=== PATIENT | male | born 1975 | race Caucasian/White ===

== ENCOUNTER 2019-10-23 11:10 | Inpatient (IN) | payer OTHER ==
[~2019-10-23] VITALS: Ht 172.7 cm; Wt 96.2 kg
[2019-10-23 12:30] VITALS: BP 157/93
[2019-10-23 13:05] LABS: BASO % 1.9 % (0.0-1.0); HEMATOCRIT 41.7 % (42.0-52.0); LYMPH # 0.6 10*3/uL (1.3-4.4); LYMPH % 28.6 % (27.0-41.0); MEAN CELL VOLUME 100.5 fl (80.0-94.0); MEAN CORPUSCULAR HGB CONC 33.8 g/dl (33.0-37.0); MEAN PLATELET VOLUME 9.6 fl (9.6-12.3); MONO # 0.3 10*3/uL (0.1-1.0); NEUT # 1.1 10*3/uL (2.3-7.9); NEUT % 52.5 % (47.0-73.0); PLATELET COUNT AUTOMATED 89 10*3/uL (130-400); RED BLOOD COUNT 4.15 10*6/uL (4.50-5.90); RED CELL DISTRI WIDTH 12.4 % (0-14.5); WHITE BLOOD COUNT 2.1 10*3/uL (4.8-10.8)
[2019-10-23 13:18] LABS: ALBUMIN 3.6 gm/dl (3.1-4.5); ALKALINE PHOSPHATASE 110 U/L (45-117); BUN 5 mg/dl (7-24); CHLORIDE 99 mmol/L (98-107); CREATININE 0.65 mg/dL (0.70-1.30); POTASSIUM 3.5 mmol/L (3.5-5.1); SGOT/AST 464 IU/L (3-35); SGPT/ALT 314 U/L (12-78); SODIUM 134 mmol/L (136-145); TOTAL PROTEIN 7.9 gm/dL (6.4-8.2)
[2019-10-23 16:00] VITALS: BP 149/97
[2019-10-23 18:36] LABS: URINE AMPHETAMINES < 1000 (1000ng/ml); URINE BARBITURATES < 200 (200ng/ml); URINE BENZODIAZEPINES < 200 (200ng/ml); URINE CANNABINOIDS (THC) < 50 (50ng/ml); URINE COCAINE < 300 (300ng/ml); URINE METHADONE < 300 (300ng/ml); URINE OPIATES < 300 (300ng/ml); URINE PHENCYCLIDINE < 25 (25ng/ml)
[2019-10-23 18:41] LABS: CLARITY SL CLOUDY (CLEAR); COLOR YELLOW (YELLOW)
[2019-10-23 18:42] LABS: BACTERIA TRACE; BILIRUBIN NEGATIVE (NEGATIVE); BLOOD NEGATIVE (NEGATIVE); GLUCOSE NEGATIVE (NEGATIVE); KETONE NEGATIVE (NEGATIVE); LEUKO ESTERASE NEGATIVE (NEGATIVE); NITRITE NEGATIVE (NEGATIVE)
[2019-10-23 19:59] VITALS: BP 150/98
[2019-10-23 20:00] VITALS: BP 152/111
[2019-10-23 21:33] VITALS: BP 152/98
[2019-10-24] VITALS: BP 139/78
[2019-10-24 05:42] LABS: ALBUMIN 3.2 gm/dl (3.1-4.5); BILIRUBIN, DIRECT 1.7 mg/dL (0.0-0.2)
[2019-10-24 08:00] VITALS: BP 130/92
[2019-10-24 12:00] VITALS: BP 138/86
[2019-10-24 16:00] VITALS: BP 137/96
[2019-10-24 20:00] VITALS: BP 130/94; BP 135/99
[2019-10-25] VITALS: BP 124/86
[2019-10-25 06:10] LABS: HEP B CORE AB, IGM Negative (Negative); HEPATITIS B SURFACE AG Negative (Negative); HEPATITIS C VIRUS ANTIBODY 0.2 s/co (0.0-0.9)
[2019-10-25 06:22] LABS: BASO # 0.1 10*3/uL (0.0-0.1); BASO % 1.7 % (0.0-1.0); EOS # 0.1 10*3/uL (0.0-0.4); EOS % 1.7 % (1.0-4.0); HEMATOCRIT 41.5 % (42.0-52.0); LYMPH # 1.2 10*3/uL (1.3-4.4); LYMPH % 39.1 % (27.0-41.0); MEAN CELL VOLUME 99.3 fl (80.0-94.0); MEAN CORPUSCULAR HGB 33.3 pg (27.0-31.0); MEAN CORPUSCULAR HGB CONC 33.5 g/dl (33.0-37.0); MONO # 0.4 10*3/uL (0.1-1.0); MONO % 13.6 % (3.0-9.0); NEUT # 1.3 10*3/uL (2.3-7.9); NEUT % 43.6 % (47.0-73.0); PLATELET COUNT AUTOMATED 85 10*3/uL (130-400); RED BLOOD COUNT 4.18 10*6/uL (4.50-5.90); RED CELL DISTRI WIDTH 12.5 % (0-14.5); WHITE BLOOD COUNT 2.9 10*3/uL (4.8-10.8)
[2019-10-25 06:51] LABS: ALBUMIN 3.2 gm/dl (3.1-4.5); ALKALINE PHOSPHATASE 134 U/L (45-117); BUN 9 mg/dl (7-24); CHLORIDE 103 mmol/L (98-107); CREATININE 0.73 mg/dL (0.70-1.30); POTASSIUM 3.6 mmol/L (3.5-5.1); SGOT/AST 383 IU/L (3-35); SGPT/ALT 293 U/L (12-78); SODIUM 133 mmol/L (136-145); TOTAL PROTEIN 7.3 gm/dL (6.4-8.2)
[2019-10-25 08:00] VITALS: BP 138/84
[2019-10-25 12:00] VITALS: BP 131/90
[2019-10-25 16:00] VITALS: BP 125/84
[2019-10-25 20:00] VITALS: BP 144/106
[2019-10-25 22:30] VITALS: BP 109/67
[2019-10-26] VITALS (12 sets, daily range): BP systolic 95–127; BP diastolic 66–93
[2019-10-26 00:03] LABS: ARTERIAL BLOOD GAS PH 7.371 (7.35-7.45)
[2019-10-26 05:33] LABS: ALBUMIN 3.4 gm/dl (3.1-4.5); ALKALINE PHOSPHATASE 134 U/L (45-117); CHLORIDE 106 mmol/L (98-107); CREATININE 0.88 mg/dL (0.70-1.30); POTASSIUM 3.8 mmol/L (3.5-5.1); SGOT/AST 275 IU/L (3-35); SGPT/ALT 270 U/L (12-78); SODIUM 135 mmol/L (136-145); TOTAL PROTEIN 7.9 gm/dL (6.4-8.2)
[2019-10-26 05:37] LABS: BUN 19 mg/dl (7-24)
[2019-10-26 05:49] LABS: ABG BASE EXCESS -3.9 mmol/L (-2.0-2.0); ARTERIAL BLOOD GAS PH 7.39 (7.35-7.45)
[2019-10-26 06:13] LABS: BASO # 0.1 10*3/uL (0.0-0.1); BASO % 1.3 % (0.0-1.0); EOS % 0.6 % (1.0-4.0); HEMATOCRIT 43.4 % (42.0-52.0); LYMPH # 0.9 10*3/uL (1.3-4.4); LYMPH % 16.7 % (27.0-41.0); MEAN CORPUSCULAR HGB CONC 32.9 g/dl (33.0-37.0); MEAN PLATELET VOLUME 11.4 fl (9.6-12.3); MONO # 0.8 10*3/uL (0.1-1.0); MONO % 15.2 % (3.0-9.0); NEUT # 3.6 10*3/uL (2.3-7.9); NEUT % 65.8 % (47.0-73.0); RED BLOOD COUNT 4.21 10*6/uL (4.50-5.90); RED CELL DISTRI WIDTH 13.1 % (0-14.5); WHITE BLOOD COUNT 5.4 10*3/uL (4.8-10.8)
[2019-10-26 06:32] LABS: MEAN CELL VOLUME 103.1 fl (80.0-94.0); PLATELET COUNT AUTOMATED 119 10*3/uL (130-400)
[2019-10-26 08:47] LABS: ABG BASE EXCESS -3.6 mmol/L (-2.0-2.0); ARTERIAL BLOOD GAS PH 7.444 (7.35-7.45)
[2019-10-27] VITALS (12 sets, daily range): BP systolic 113–155; BP diastolic 65–90
[2019-10-27 06:12] LABS: BASO # 0.1 10*3/uL (0.0-0.1); BASO % 0.7 % (0.0-1.0); EOS % 0.3 % (1.0-4.0); HEMATOCRIT 43.7 % (42.0-52.0); MEAN CELL VOLUME 103.8 fl (80.0-94.0); MEAN CORPUSCULAR HGB 33.5 pg (27.0-31.0); MEAN CORPUSCULAR HGB CONC 32.3 g/dl (33.0-37.0); MEAN PLATELET VOLUME 11.3 fl (9.6-12.3); MONO # 1.1 10*3/uL (0.1-1.0); MONO % 15.9 % (3.0-9.0); NEUT # 4.7 10*3/uL (2.3-7.9); NEUT % 68.5 % (47.0-73.0); PLATELET COUNT AUTOMATED 98 10*3/uL (130-400); RED BLOOD COUNT 4.21 10*6/uL (4.50-5.90); WHITE BLOOD COUNT 6.8 10*3/uL (4.8-10.8)
[2019-10-27 06:29] LABS: ALBUMIN 2.9 gm/dl (3.1-4.5); ALKALINE PHOSPHATASE 110 U/L (45-117); BUN 18 mg/dl (7-24); CHLORIDE 110 mmol/L (98-107); CREATININE 0.84 mg/dL (0.70-1.30); POTASSIUM 3.3 mmol/L (3.5-5.1); SGOT/AST 160 IU/L (3-35); SGPT/ALT 192 U/L (12-78); SODIUM 138 mmol/L (136-145); TOTAL PROTEIN 7.1 gm/dL (6.4-8.2)
[2019-10-27 07:49] LABS: ABG BASE EXCESS -3.9 mmol/L (-2.0-2.0); ARTERIAL BLOOD GAS PH 7.445 (7.35-7.45)
[2019-10-28] VITALS (9 sets, daily range): BP systolic 115–138; BP diastolic 66–88
[2019-10-28 06:23] LABS: ALBUMIN 2.6 gm/dl (3.1-4.5); ALKALINE PHOSPHATASE 116 U/L (45-117); BUN 14 mg/dl (7-24); CHLORIDE 111 mmol/L (98-107); CREATININE 0.81 mg/dL (0.70-1.30); HEMATOCRIT 40.6 % (42.0-52.0); MEAN CELL VOLUME 103.3 fl (80.0-94.0); MEAN CORPUSCULAR HGB 34.4 pg (27.0-31.0); MEAN CORPUSCULAR HGB CONC 33.3 g/dl (33.0-37.0); RED BLOOD COUNT 3.93 10*6/uL (4.50-5.90); RED CELL DISTRI WIDTH 12.9 % (0-14.5); SGOT/AST 121 IU/L (3-35); SGPT/ALT 148 U/L (12-78); SODIUM 137 mmol/L (136-145); TOTAL PROTEIN 7.1 gm/dL (6.4-8.2); WHITE BLOOD COUNT 5.5 10*3/uL (4.8-10.8)
[2019-10-28 06:27] LABS: PLATELET COUNT AUTOMATED 128 10*3/uL (130-400)
[2019-10-28 06:28] LABS: POTASSIUM 3.6 mmol/L (3.5-5.1)
[2019-10-28 06:45] LABS: BASOPHILS 3 % (0-1); DOHLE BODIES FEW; TOTAL CELLS COUNTED 100 #CELLS; TOXIC GRANULATION SLIGHT; VACUOLATION OF NEUTROPHILS SLIGHT
[2019-10-28 06:46] LABS: PLATELET SUFFICIENCY LOW (NORMAL); POLYCHROMASIA SLIGHT; ROULEAUX SLIGHT
[2019-10-28 09:36] LABS: ARTERIAL BLOOD GAS PH 7.412 (7.35-7.45)
[2019-10-29] VITALS: BP 122/71
[2019-10-29 04:00] VITALS: BP 129/80
[2019-10-29 05:02] LABS: ALBUMIN 2.4 gm/dl (3.1-4.5); ALKALINE PHOSPHATASE 109 U/L (45-117); BUN 13 mg/dl (7-24); CHLORIDE 110 mmol/L (98-107); CREATININE 0.74 mg/dL (0.70-1.30); POTASSIUM 3.6 mmol/L (3.5-5.1); SGOT/AST 96 IU/L (3-35); SGPT/ALT 122 U/L (12-78); SODIUM 139 mmol/L (136-145); TOTAL PROTEIN 7.1 gm/dL (6.4-8.2)
[2019-10-29 05:58] LABS: BASO # 0.1 10*3/uL (0.0-0.1); EOS # 0.1 10*3/uL (0.0-0.4); EOS % 1.6 % (1.0-4.0); HEMATOCRIT 40.3 % (42.0-52.0); LYMPH # 1.4 10*3/uL (1.3-4.4); LYMPH % 24.6 % (27.0-41.0); MEAN CELL VOLUME 104.4 fl (80.0-94.0); MEAN CORPUSCULAR HGB 33.2 pg (27.0-31.0); MEAN CORPUSCULAR HGB CONC 31.8 g/dl (33.0-37.0); MEAN PLATELET VOLUME 11.5 fl (9.6-12.3); MONO # 1.1 10*3/uL (0.1-1.0); MONO % 19.4 % (3.0-9.0); NEUT # 2.9 10*3/uL (2.3-7.9); NEUT % 51.2 % (47.0-73.0); PLATELET COUNT AUTOMATED 151 10*3/uL (130-400); RED BLOOD COUNT 3.86 10*6/uL (4.50-5.90); RED CELL DISTRI WIDTH 12.6 % (0-14.5); WHITE BLOOD COUNT 5.6 10*3/uL (4.8-10.8)
[2019-10-29 08:00] VITALS: BP 140/90
[2019-10-29 16:00] VITALS: BP 140/100
[2019-10-29 20:00] VITALS: BP 151/83
[2019-10-30] VITALS: BP 137/79
[2019-10-30 08:00] VITALS: BP 110/66
[2019-10-30 12:00] VITALS: BP 122/78
[2019-10-30 16:00] VITALS: BP 134/84
[2019-10-30 20:00] VITALS: BP 139/80
[2019-10-31] VITALS: BP 108/60
[2019-10-31] MEDS ORDERED: FENOFIBRATE160 MG PO (07:36)
[2019-10-31] MEDS ORDERED: ATARAX,VISTARIL50 MG PO (07:36)
[2019-10-31] MEDS ORDERED: CHLORDIAZEPOXID25 M1 PO (07:36)
[2019-10-31] MEDS ORDERED: RESTORIL15 MG PO (07:39)
[2019-10-31 08:00] VITALS: BP 114/68
[2019-10-31 12:00] VITALS: BP 127/77
== END 2019-10-31 16:45 | disposition home or self-care (01) | DRG 775 ==
LOC: 4E 11:10 → ICCU 10-25 19:28 → 4E 10-29 10:53
PROVIDERS: Internal Medicine; Internal Medicine Critical Care Medicine; Registered Nurse; Student in an Organized Health Care Education/Training Program; ADMIT Internal Medicine
PROC: 0BH17EZ Insertion of Endotracheal Airway into Trachea, Via Natural or Artificial Opening (ICD-10-PCS; principal; 2019-10-26)
PROC: 5A1945Z Respiratory Ventilation, 24-96 Consecutive Hours (ICD-10-PCS; 2019-10-26)
DX: F10.231 Alcohol dependence with withdrawal delirium (principal); E87.1 Hypo-osmolality and hyponatremia; D53.9 Nutritional anemia, unspecified; E44.0 Moderate protein-calorie malnutrition; R03.0 Elevated blood-pressure reading, without diagnosis of hypertension; R00.0 Tachycardia, unspecified; F10.280 Alcohol dependence with alcohol-induced anxiety disorder; D72.829 Elevated white blood cell count, unspecified; E66.9 Obesity, unspecified; F10.220 Alcohol dependence with intoxication, uncomplicated; R74.0 Nonspecific elevation of levels of transaminase and lactic acid dehydrogenase [LDH]; K76.0 Fatty (change of) liver, not elsewhere classified; G47.00 Insomnia, unspecified; R65.10 Systemic inflammatory response syndrome (SIRS) of non-infectious origin without acute organ dysfunction; J96.00 Acute respiratory failure, unspecified whether with hypoxia or hypercapnia; T42.6X5A Adverse effect of other antiepileptic and sedative-hypnotic drugs, initial encounter; Y92.238 Other place in hospital as the place of occurrence of the external cause; D69.59 Other secondary thrombocytopenia; E87.6 Hypokalemia; E83.39 Other disorders of phosphorus metabolism; E78.1 Pure hyperglyceridemia; T41.295A Adverse effect of other general anesthetics, initial encounter; Y92.89 Other specified places as the place of occurrence of the external cause; Z78.1 Physical restraint status; Z68.32 Body mass index [BMI] 32.0-32.9, adult

== ENCOUNTER 2022-07-18 13:19 | Inpatient (IN) | payer OTHER ==
[~2022-07-18] VITALS: Ht 172.7 cm; Wt 84.1 kg
[~2022-07-18 13:19] MED LIST: ATARAX,VISTARIL50 MG PO; CHLORDIAZEPOXID25 M1 PO; FENOFIBRATE160 MG PO; RESTORIL15 MG PO
[2022-07-18 13:24] VITALS: BP 125/71
[2022-07-18 13:50] LABS: BASO % 0.4 % (0.0-1.0); EOS % 0.3 % (1.0-4.0); HEMATOCRIT 46.3 % (42.0-52.0); LYMPH # 0.4 10*3/uL (1.3-4.4); LYMPH % 6.3 % (27.0-41.0); MEAN CELL VOLUME 86.1 fl (80.0-94.0); MEAN CORPUSCULAR HGB 27.7 pg (27.0-31.0); MEAN CORPUSCULAR HGB CONC 32.2 g/dl (33.0-37.0); MEAN PLATELET VOLUME 9.6 fl (9.6-12.3); MONO # 0.6 10*3/uL (0.1-1.0); MONO % 8.8 % (3.0-9.0); NEUT # 5.8 10*3/uL (2.3-7.9); NEUT % 82.9 % (47.0-73.0); PLATELET COUNT AUTOMATED 131 10*3/uL (130-400); RED BLOOD COUNT 5.38 10*6/uL (4.50-5.90); RED CELL DISTRI WIDTH 15.8 % (0-14.5); WHITE BLOOD COUNT 6.9 10*3/uL (4.8-10.8)
[2022-07-18 14:09] LABS: ALKALINE PHOSPHATASE 108 U/L (46-116); BUN 10 mg/dl (9-23); CHLORIDE 88 mmol/L (98-107); POTASSIUM 3.6 mmol/L (3.4-5.1); SGPT/ALT 106 U/L (10-49); TOTAL PROTEIN 8.4 gm/dL (6.0-8.0)
[2022-07-18 14:12] LABS: BILIRUBIN Negative (Negative); BLOOD 2+ (Negative); CLARITY Clear (Clear); COLOR Yellow (Yellow); GLUCOSE Negative (Negative); KETONE 1+ (Negative); LEUKO ESTERASE Negative (Negative); NITRITE Negative (Negative); PH 6.5 (4.5-8.0); SPECIFIC GRAVITY 1.015 (1.001-1.030)
[2022-07-18 14:19] LABS: URINE AMPHETAMINES Negative (1000ng/ml); URINE BARBITURATES Negative (200ng/ml); URINE BENZODIAZEPINES Positive (200ng/ml); URINE CANNABINOIDS (THC) Negative (50ng/ml); URINE COCAINE Negative (300ng/ml); URINE METHADONE Negative (300ng/ml); URINE OPIATES Negative (300ng/ml); URINE PHENCYCLIDINE Negative (25ng/ml)
[2022-07-18 14:25] LABS: BACTERIA TRACE; MUCOUS 1+; RBC 0-2 rbc/hpf (0-2)
[2022-07-18] MEDS ORDERED: FLUOXETINE HYDR20 M1 PO (14:33)
[2022-07-18 15:52] VITALS: BP 144/87
[2022-07-18] MEDS ORDERED: HYDROXYZINE PAM25 M1 PO (17:43)
[2022-07-18 17:46] VITALS: BP 163/88
[2022-07-18 18:00] VITALS: BP 154/80
[2022-07-18 20:00] VITALS: BP 136/82
[2022-07-19] VITALS: BP 115/87
[2022-07-19 06:39] LABS: ALKALINE PHOSPHATASE 84 U/L (46-116); BUN 13 mg/dl (9-23); CHLORIDE 94 mmol/L (98-107); POTASSIUM 3.4 mmol/L (3.4-5.1); SGPT/ALT 88 U/L (10-49); TOTAL PROTEIN 7.2 gm/dL (6.0-8.0)
[2022-07-19 06:40] LABS: ACT PARTIAL THROMBO TIME 25.6 SECONDS (20.0-32.1); INTERNATIONAL NORM RATIO 0.9 (2.0-3.5)
[2022-07-19 06:50] LABS: BASO % 0.3 % (0.0-1.0); EOS % 0.3 % (1.0-4.0); HEMATOCRIT 39.7 % (42.0-52.0); LYMPH # 0.9 10*3/uL (1.3-4.4); LYMPH % 14.7 % (27.0-41.0); MEAN CELL VOLUME 83.4 fl (80.0-94.0); MEAN CORPUSCULAR HGB 27.7 pg (27.0-31.0); MEAN CORPUSCULAR HGB CONC 33.2 g/dl (33.0-37.0); MEAN PLATELET VOLUME 10.4 fl (9.6-12.3); MONO % 15.3 % (3.0-9.0); NEUT # 4.3 10*3/uL (2.3-7.9); NEUT % 69.1 % (47.0-73.0); RED BLOOD COUNT 4.76 10*6/uL (4.50-5.90); RED CELL DISTRI WIDTH 16.6 % (0-14.5); WHITE BLOOD COUNT 6.2 10*3/uL (4.8-10.8)
[2022-07-19 07:03] LABS: PLATELET COUNT AUTOMATED 92 10*3/uL (130-400)
[2022-07-19 08:00] VITALS: BP 151/84
[2022-07-19 12:00] VITALS: BP 147/72
[2022-07-19 16:00] VITALS: BP 147/98
[2022-07-19 20:00] VITALS: BP 133/92
[2022-07-20] VITALS: BP 130/81
[2022-07-20 08:00] VITALS: BP 146/77
[2022-07-20 16:00] VITALS: BP 136/85; BP 142/80
[2022-07-20 20:00] VITALS: BP 138/87
[2022-07-21] VITALS: BP 159/84
[2022-07-21 07:27] VITALS: BP 140/98
[2022-07-21 12:00] VITALS: BP 138/79; BP 156/73
[2022-07-21 16:00] VITALS: BP 143/87
[2022-07-21 20:00] VITALS: BP 167/84
[2022-07-22] VITALS: BP 148/87
[2022-07-22 08:00] VITALS: BP 161/95
== END 2022-07-22 16:05 | disposition home or self-care (01) | DRG 775 ==
LOC: ED 13:19 → EDHOLD 17:38 → 4E 17:38
PROVIDERS: Internal Medicine; Student in an Organized Health Care Education/Training Program; ADMIT Internal Medicine; ATTEND Internal Medicine
DX: F10.239 Alcohol dependence with withdrawal, unspecified (principal); E87.1 Hypo-osmolality and hyponatremia; E87.20 Acidosis, unspecified; R65.10 Systemic inflammatory response syndrome (SIRS) of non-infectious origin without acute organ dysfunction; K76.0 Fatty (change of) liver, not elsewhere classified; F41.1 Generalized anxiety disorder; F33.2 Major depressive disorder, recurrent severe without psychotic features; I10 Essential (primary) hypertension; E87.8 Other disorders of electrolyte and fluid balance, not elsewhere classified; R31.21 Asymptomatic microscopic hematuria; Z87.898 Personal history of other specified conditions